=== PATIENT | male | born 1955 | race Caucasian/White ===

== ENCOUNTER 2018-03-25 18:24 | Emergency (ER) | payer BC ==
[~2018-03-25] VITALS: Ht 177.8 cm; Wt 110.2 kg
--- OUTSIDE RECORDS SUMMARY | ~2018-03-25 | XMS | Clinical Summary ---
Demographics + + + | Address | [address] | | | [place] [address] | + + + | Home Phone | | + + + | Preferred Language | Unknown | + + + | Marital Status | | + + + | Lutheran Affiliation | Unknown | + + + | Race | Unknown | + + + | Ethnic Group | Unknown | + + + Author + + + | Author | [facility] | | | and [place] | + + + | Organization | [facility] | | | and [place] | + + + | Address | Unknown | + + + | Phone | Unavailable | + + + Support + + +---------+ + | Name | Relationship | Address | Phone | + + +---------+ + | None,Per Pt | ECON | Unknown | | + + +---------+ + Care Team Providers + +------+ + | Care Financial Engineer Name | Role | Phone | + +------+ + | Elena Carvajal | PP | | + +------+ + Allergies No Known Allergies Current Medications + + +---------+---------+------+------+-------+ | Prescription | Sig. | Disp. | Refills | Star | End | Statu | | | | | | t | Date | s | | | | | | Date | | | + + +---------+---------+------+------+-------+ | rosuvastatin | Take 10 mg by mouth | | | | | Activ | | (CRESTOR) 10 mg | nightly. | | | | | e | | tablet | | | | | | | + + +---------+---------+------+------+-------+ | tamsulosin | Take 0.4 mg by mouth | | | | | Activ | | (FLOMAX) 0.4 mg CAPS | daily (after | | | | | e | | | breakfast). | | | | | | + + +---------+---------+------+------+-------+ | | Take 1 capsule by | | | | | Activ | | amlodipine-benazepri | mouth Daily. | | | | | e | | l (LOTREL) 10-20 MG | | | | | | | | per capsule | | | | | | | + + +---------+---------+------+------+-------+ | | Inhale 2 puffs into | 3 | 3 | 06/0 | | Activ | | mometasone-formotero | the lungs 2 times | Inhaler | | 7/20 | | e | | l (DULERA) 200-5 | daily. Rinse mouth | | | 16 | | | | mcg/puff inhaler | after use. | | | | | | + + +---------+---------+------+------+-------+ | fluticasone | 2 sprays by Nasal | | | 05/0 | | Activ | | (FLONASE) 50 | route 2 times daily. | | | 9/20 | | e | | mcg/nasal spray | | | | 17 | | | + + +---------+---------+------+------+-------+ | PROAIR HFA 108 (90 | Inhale 2 puffs into | | | | | Activ | | Base) MCG/ACT | the lungs every 4 | | | | | e | | inhaler | hours as needed for | | | | | | | | Wheezing or | | | | | | | | Shortness of Breath. | | | | | | + + +---------+---------+------+------+-------+ | Lysine 1000 MG | Take 1,000 mg by | | | | | Activ | | TABS | mouth Daily. | | | | | e | + + +---------+---------+------+------+-------+ | Calcium | Take 1 tablet by | | | | | Activ | | Carb-Cholecalciferol | mouth Daily. | | | | | e | | (SM CALCIUM/VITAMIN | | | | | | | | D) 600-800 MG-UNIT | | | | | | | | TABS | | | | | | | + + +---------+---------+------+------+-------+ | loratadine | Take 10 mg by mouth | | | | | Activ | | (CLARITIN) 10 mg | Daily. | | | | | e | | tablet | | | | | | | + + +---------+---------+------+------+-------+ | Hypertonic Nasal | 1 Application by | | | | | Activ | | Wash (SINUS RINSE | Nasal route as | | | | | e | | BOTTLE KIT NA) | needed. | | | | | | + + +---------+---------+------+------+-------+ Active Problems + + + | Problem | Noted Date | + + + | Cholelithiasis | 11/30/2014 | + + + + + | Overview: On chest CT 08/2014, quite large | + + + + + | Cervical Spondylosis | 12/14/2013 | + + + | Benign hypertension | 03/03/2013 | + + + | Environmental allergies | 03/03/2013 | + + + | Asthma | | + + + | Recurrent sinusitis | | + + + | Hyperlipidemia | | + + + + + | Overview: on Crestor | + + + +---+ | Benign prostatic hypertrophy | | + +---+ + + | Overview: on Flomax | + + Resolved Problems + + + + | Problem | Noted | Resolved | | | Date | Date | + + + + | Cervical Spinal stenosis | 12/15/19 | | | | 14 | 5 | + + + + | Cervicalgia | 12/15/19 | | | | 14 | 4 | + + + + | Brachial Radiculitis | 12/15/19 | | | | 14 | 4 | + + + + + + | Overview: ICD-10 Record update | + + + + + + | Acute bronchitis | 03/03/20 | | | | 13 | 3 | + + + + | Acute pansinusitis | 03/03/20 | | | | 13 | 3 | + + + + | Pneumonia | | | | | | 4 | + + + + Immunizations + + + + | Name | Dates Previously Given | Next Due | + + + + | INFLUENZA PF 18 Y OR | 04/18/2015, 03/28/2014, 03/30/2013, | | | >,TRIVALENT | 04/11/2012 | | | RECOMBINANT | | | + + + + | INFLUENZA PF | 04/06/2016 | | | QUAD(PED/ADOL/ADULT) | | | | ,PSKT or VIAL | | | + + + + | PNEUMOCOCCAL | 03/30/2013 | | | POLYSACCHARIDE | | | | 23-VALENT (PPSV23) | | | + + + + Family History + + +------+ + | Medical History | Relation | Name | Comments | + + +------+ + | Asthma | Brother | | | + + +------+ + | Allergies | Daughter | | | + + +------+ + | Diabetes | Father | | | + + +------+ + | Heart attack | Father | | | + + +------+ + | Arthritis | Mother | | | + + +------+ + | Hypertension | Mother | | | + + +------+ + | Cancer | Other | | grandmother | + + +------+ + | Allergies | Sister | | | + + +------+ + + +------+ + + | Relation | Name | Status | Comments | + +------+ + + | Brother | | Alive | | + +------+ + + | Brother | | Alive | | + +------+ + + | Daughter | | Alive | | + +------+ + + | Father | | Alive | | + +------+ + + | Mother | | | | + +------+ + + | Other | | | | + +------+ + + | Sister | | Alive | | + +------+ + + | Sister | | Alive | | + +------+ + + Social History + + + +--------+ + | Tobacco Use | Types | Packs/Day | Years | Date | | | | | Used | | + + + +--------+ + | Former Smoker | Cigarettes | 1 | 20 | 12/31/1972 - | | | | | | 03/29/1996 | + + + +--------+ + + +---+---+---+ | Smokeless Tobacco: | | | | | Never Used | | | | + +---+---+---+ + + | Tobacco Cessation: Counseling Given: No | + + + + +---------+ + | Alcohol Use | Drinks/We | oz/Week | Comments | | | ek | | | + + +---------+ + | Yes | 0 | 0.0 | occassionally | | | Standard | | | | | drinks or | | | | | | | | | | equivalen | | | | | t | | | + + +---------+ + + + + | Sex Assigned at | Date Recorded | | | | + + + | Not on file | | + + + Last Filed Vital Signs + + + + | Vital Sign | Reading | Time Taken | + + + + | Blood Pressure | 130/84 | 12/14/20171308 PDT | + + + + | Pulse | 93 | 12/14/20171308 PDT | + + + + | Temperature | 36.7 C (98 F) | 12/14/20171308 PDT | + + + + | Respiratory Rate | 16 | 11/30/2014 1556 PDT | + + + + | Oxygen Saturation | 95% | 12/14/20171308 PDT | + + + + | Inhaled Oxygen | - | - | | Concentration | | | + + + + | Weight | 112.5 kg (248 lb 0.3 | 12/14/20171308 PDT | | | oz) | | + + + + | Height | 177.8 cm (5' 10") | 12/14/20171308 PDT | + + + + | Body Mass Index | 35.59 | 12/14/20171308 PDT | + + + + Plan of Treatment + + + + + | Health Maintenance | Due Date | Last Done | Comments | + + + + + | Hepatitis C | | | | | Screening | 7 | | | + + + + + | Vaccine: | | | | | Dtap/Tdap/Td (1 - | 6 | | | | Tdap) | | | | + + + + + | Vaccine: Zoster (1 | | | | | of 2) | 7 | | | + + + + + | Vaccine: Influenza | | 04/06/2016, 04/18/2015, | | | (#1) | 8 | 03/28/2014, Additional history | | | | | exists | | + + + + + | Colorectal Cancer | | 07/29/2017 | | | Screening | 8 | | | | (Colonoscopy) | | | | + + + + + | Vaccine: | Completed | 03/30/2013 | | | Pneumococcal 19-64 | | | | | (PPSV23 only) Medium | | | | | Risk | | | | + + + + + Implants + +------+-------+ +--------+--------+--------+ | Implanted | Type | Area | Manufacture | Device | Expira | Model | | | | | r | | tion | / | | | | | | Identi | Date | Serial | | | | | | fier | | / Lot | + +------+-------+ +--------+--------+--------+ | Allgrft Grftn Pls 1cc Aseptic | | N/A: | OSTEOTECH - | | 09/20/ | [id number] | | - [id number]: Qty: | | Neck | OSTT | | 2015 | | | 1 on 12/14/2013 by Ken, | | | | | | /[id number] | | Marshall Post DO | | | | | | 1-154 | | | | | | | | / | + +------+-------+ +--------+--------+--------+ | Allgrft Grftn Pls 1cc Aseptic | | N/A: | OSTEOTECH - | | 09/05/ | [id number] | | - [id number]: Qty: | | Neck | OSTT | | 2015 | | | 1 on 12/14/2013 by Ken, | | | | | | /[id number] | | Marshall Post DO | | | | | | 5-085 | | | | | | | | / | + +------+-------+ +--------+--------+--------+ | Anatomic Cervical Allograft | | | | | 04/14/ | [id number] | | Spacer [id number]: | | | | | 2016 | 4 | | Qty: 1 on 12/14/2013 by | | | | | | /[id number] | | Marshall Rogers DO | | | | | | 13 | | | | | | | | /[id number] | | | | | | | | 7052 | + +------+-------+ +--------+--------+--------+ | Anatomic Cervical Allograft | | | | | 10/16/ | [id number] | | Spacer [id number]: | | | | | 2016 | 4 | | Qty: 1 on 12/14/2013 by | | | | | | /[id number] | | Marshall Rogers DO | | | | | | 96 | | | | | | | | /[address] | | | | | | | | 9504 | + +------+-------+ +--------+--------+--------+ | Anatomic Cervical Allograft | | | | | 10/16/ | [id number] | | Spacer [id number]: | | | | | 2016 | 4 | | Qty: 1 on 12/14/2013 by | | | | | | /[id number] | | Marshall Rogers DO | | | | | | 89 | | | | | | | | /[id number] | | | | | | | | 9504 | + +------+-------+ +--------+--------+--------+ | 4.0 Variable Angle | | | | | | [id number] | | [id number]: Qty: 2 on | | | | | | / | | 12/14/2013 by Marshall Rogers | | | | | | | | A, DO | | | | | | | + +------+-------+ +--------+--------+--------+ | Screw Slf-Drl V/A 4.0x17mm - | | | SOFAMOR | | | [id number] | | [id number]: Qty: 2 on | | | DANEK - DIV | | | / | | 12/14/2013 by Marshall Rogers | | | [employer] | | | | | A, DO | | | - SFDK | | | | + +------+-------+ +--------+--------+--------+ | Screw Slf-Drl Linette 4x18 - | | | SOFAMOR | | | [id number] | | [id number]: Qty: 4 on | | | DANEK - DIV | | | 8 / | | 12/14/2013 by Marshall Rogers | | | [employer] | | | | | DO Sejal | | | - SFDK | | | | + +------+-------+ +--------+--------+--------+ | Plate [place] Elite 62.5mm - | | | [employer] - | | | [id number] | | [id number]: Qty: 1 | | | MEDT | | | 2 / / | | on 12/14/2013 by Ken, | | | | | | | | Marshall Post DO | | | | | | | + +------+-------+ +--------+--------+--------+ Results Not on filefrom Last 3 Months Insurance +-------+--------+ +------+-------+---------+ | Payer | Benefi | Subscriber | Type | Phone | Address | | | t Plan | ID | | | | | | / | | | | | | | Group | | | | | +-------+--------+ +------+-------+---------+ | BCBS | BCBS | [id number] | PPO | | | | | [place] | | | | | | | L FEP | | | | | +-------+--------+ +------+-------+---------+ + +--------+ +--------+ + + | Guarantor Name | Accoun | Relation to | Date | Phone | Billing Address | | | t Type | Patient | of | | | | | | | | | | + +--------+ +--------+ + + | RUSSEL HOANG | Person | Self [birth year] Work: | [address] | | | al/Malik | | 1955 | [phone] | [place] [address] | | | jessica | | | [phone]: | | | | | | | | | | | | | [phone] | | | | | | | [phone] | | + +--------+ +--------+ + +
--- OUTSIDE RECORDS SUMMARY | ~2018-03-25 | XMS | Clinical Summary ---
Demographics + + + | Address | [address] | | | [place] [address] | + + + | Home Phone | | + + + | Preferred Language | Unknown | + + + | Marital Status | | + + + | Temple Affiliation | Unknown | + + + | Race | Unknown | + + + | Ethnic Group | Unknown | + + + Author + + + | Author | [facility] | | | and [place] | + + + | Organization | [facility] | | | and [place] | [...] Team Providers + +------+ + | Care Coal Equipment Operator Name | Role | Phone | + [...] | OSTEOTECH - | | 09/20/ | [id number] | | - [id number]: Qty: | | Neck | OSTT | [...] | OSTEOTECH - | | 09/05/ | [id number] | | - [id number]: Qty: | | Neck | OSTT | | 2015 | | | 1 on 12/14/2013 by Ken, | | | | | | /[id number] | | Marshall Post DO | | | | | | 5-085 | | | | | | | | / | + +------+-------+ +--------+--------+--------+ | Anatomic Cervical Allograft | | | | | 04/14/ | [id number] | | Spacer [id number]: | | | | | 2016 | 4 | | Qty: 1 on 12/14/2013 by | | | | | | /[id number] | | Marshall Rogers DO | | | | | | 13 | | | | | | | | /64542 | | | | | | | | 7052 | + +------+-------+ +--------+--------+--------+ | Anatomic Cervical Allograft | | | | | 10/16/ | [id number] | | Spacer [id number]: | | | | | 2016 | 4 | | Qty: 1 on 12/14/2013 by | | | | | | /[id number] | | Marshall Rogers DO | | | | | | 96 | | | | | | | | /[address] | | | | | | | | 9504 | + +------+-------+ +--------+--------+--------+ | Anatomic Cervical Allograft | | | | | 10/16/ | 754671 | | Spacer [id number]: | | | | | 2016 | 4 | | Qty: 1 on 12/14/2013 by | | | | | | /[id number] | | Marshall Rogers DO | | | | | | 89 | | | | | | | | /[id number] | | | | | | | | 9504 | + +------+-------+ +--------+--------+--------+ | 4.0 Variable Angle | | | | | | [id number] | | [id number]: Qty: 2 on | | | | | | / | | 12/14/2013 by Marshall Rogers | | | | | | | | A, DO | | | | | | | + +------+-------+ +--------+--------+--------+ | Screw Slf-Drl V/A 4.0x17mm - | | | SOFAMOR | | | [id number] | | [id number]: Qty: 2 on | | | DANEK - DIV | | | / | | 12/14/2013 by Marshall Rogers | | | [employer] | | | | | A, DO | | | - SFDK | | | | + +------+-------+ +--------+--------+--------+ | Screw Slf-Drl Linette 4x18 - | | | SOFAMOR | | | [id number] | | [id number]: Qty: 4 on | | | DANEK - DIV | | | 8 / | | 12/14/2013 by Marshall Rogers | | | [employer] | | | | | DO Sejal | | | - SFDK | | | | + +------+-------+ +--------+--------+--------+ | Plate [place] Elite 62.5mm - | | | [employer] - | | | [id number] | | [id number]: Qty: 1 | | | MEDT | [...] +-------+--------+ +------+-------+---------+ | BCBS | BCBS | [id number] | PPO | | | | | [...] | | al/Malik | | 1955 | [phone] | [place] [address] | | | jessica | | | [phone]: | | | | | | | | | | | | | [phone] | | | | | | | [phone] | | + +--------+ +--------+ + +
[~2018-03-25 18:24] MED LIST: AMLODIPINE-BEN1 EAC3 PO; ASPIRIN325 MG PO; AZELASTINE205.5 MCG/ NS; CALCIUM600 MG PO; COLACE100 MG PO; CRESTOR10 MG PO; DULERA 200 MCG/13 GM INH; GLUCOSAMINE1000 MG PO; LORATADINE10 MG PO; PERCOCET 5-3251 EACH PO; TAMSULOSIN HCL0.4 MG PO; ZOFRAN4 MG PO
--- NOTE | 2018-03-25 22:06 | EKG ---
[facility] [address] [place], [place] [address] Signed Normal sinus rhythm Normal ECG No previous ECGs available Confirmed by CHEPE CLARKE MD ([id number]) on 03/25/2018 10:06:21 PM Electronically Signed By: CHEPE CLARKE MD 03/25/18 2206 PATIENT NAME: AUSTIN SHETTY Electrocardiogram DATE OF : 57 PHYSICIAN: CHEPE CLARKE MD REPORT #: [id number] REPORT IS CONFIDENTIAL AND NOT TO BE RELEASED WITHOUT AUTHORIZATION
== END 2018-03-25 21:44 | disposition home or self-care (01) ==
LOC: ED 18:24
DX: R55 Syncope and collapse (principal); I10 Essential (primary) hypertension; Z79.899 Other long term (current) drug therapy
CPT/HCPCS: 80053; 84484; 85025; 93005; 93010; 99285; J7040